=== PATIENT | female | born 1970 | race American Indian/Alaskan Native ===

== ENCOUNTER 2017-07-07 11:52 | Outpatient (CLI) | payer BC ==
--- NOTE | 2017-07-08 13:11 | Mammography Report ---
BILATERAL DIGITAL SCREENING MAMMOGRAM with CAD: 07/07/17 11:52:00 CLINICAL: Routine screening. COMPARISON: 11/19/14 FINDINGS: There has been some fatty involution and the breasts are mostly fatty. Left asymmetries require additional imaging. The right breast is negative. IMPRESSION: Left asymmetries requiring additional imaging. BI-RADS CATEGORY: 0--Needs Additional Imaging RECOMMENDATION: Recall for left spot compression views and left breast ultrasound needed. COMMENT: Patient follow-up letters are generated by our [employer] application.
== END 2017-07-07 11:53 | disposition home or self-care (01) ==
LOC: SPVWC 11:52
PROVIDERS: ATTEND Obstetrics & Gynecology
DX: Z12.31 Encounter for screening mammogram for malignant neoplasm of breast (principal)
CPT/HCPCS: 77067; G0202

== ENCOUNTER 2017-07-26 10:45 | Outpatient (CLI) | payer BC ==
--- NOTE | 2017-07-26 13:28 | Mammography Report ---
LEFT DIGITAL DIAGNOSTIC MAMMOGRAM and LEFT BREAST ULTRASOUND: 07/26/17 10:45:00 CLINICAL: Recalled for asymmetry. The recent screening mammogram was compared to a recent [facility] mammogram that was on a CD brought by the patient. COMPARISON:07/07/17 screening FINDINGS: Lateralmedial and spot compression MLO and CC views were performed. An oval 8mm retroareolar density persists on the CC spot view but there is no correlation on the MLO spot view.There is questionable correlation slightly above the nipple line on the lateral view. No suspicious finding on the lateral view. Ultrasound of the left breast was performed and failed to demonstrate a mass or cyst to correlate with the mammographic asymmetry. A superficial cyst at 9 o'clock one centimeters from the nipple measures 6 x 2 x 5 mm. A benign cyst at 4 o'clock 4 cm from the nipple measures 4 x 2 x 4 mm. A benign cystic cluster at 9 o'clock 5 cm from the nipple measures 5 x 3 x 3 mm. A periareolar dilated duct with echogenic material is identified at 11 o'clock. IMPRESSION: A probably benign mammographic asymmetry with no ultrasound correlate and several benign left breast cysts along with benign duct ectasia. BI-RADS CATEGORY: 3--Probably Benign RECOMMENDATION: Six month followup left mammogram and ultrasound if needed. ACR BI-RADS MAMMOGRAPHIC CODES: 0 = Needs additional imaging evaluation; 1 = Negative; 2 = Benign; 3 = Probably benign; 4 = Suspicious; 5 = Malignant; 6 = Known biopsy-proven malignancy COMMENT: 1. Dense breast tissue, i.e., adenosis, fibrocystic changes, etc., may obscure an underlying neoplasm. 2. Approximately 10% of cancers are not detected with mammography. 3. A negative mammography report should not delay biopsy if a clinically suspicious mass is present. COMMENT: Patient follow-up letters are generated via our [employer] application.
== END 2017-07-26 10:46 | disposition home or self-care (01) ==
LOC: SPVWC 10:45
PROVIDERS: ATTEND Internal Medicine
DX: N60.02 Solitary cyst of left breast (principal); N60.42 Mammary duct ectasia of left breast; N64.89 Other specified disorders of breast
CPT/HCPCS: 76642; G0206

== ENCOUNTER 2018-01-13 09:00 | Outpatient (CLI) | payer BC ==
--- NOTE | 2018-01-13 10:16 | Mammography Report ---
LEFT DIGITAL DIAGNOSTIC MAMMOGRAM with CAD: 01/13/18 09:00:00 CLINICAL: Six month followup asymmetry. COMPARISON:07/26/17 FINDINGS: Routine views plus rolled CC and spot compression MLO and CC views were performed. The previously described asymmetry on the CC view is less prominent on today's CC view with spot compression and is not identified on rolled or MLO views. IMPRESSION: Benign summation density. BI-RADS CATEGORY: 2 -- Benign RECOMMENDATION: Return to routine mammographic screening. ACR BI-RADS MAMMOGRAPHIC CODES: 0 = Needs additional imaging evaluation; 1 = Negative; 2 = Benign; 3 = Probably benign; 4 = Suspicious; 5 = Malignant; 6 = Known biopsy-proven malignancy COMMENT: 1. Dense breast tissue, i.e., adenosis, fibrocystic changes, etc., may obscure an underlying neoplasm. 2. Approximately 10% of cancers are not detected with mammography. 3. A negative mammography report should not delay biopsy if a clinically suspicious mass is present. COMMENT: Patient follow-up letters are generated by our [employer] application.
== END 2018-01-13 09:01 | disposition home or self-care (01) ==
LOC: SPVWC 09:00
PROVIDERS: ATTEND Internal Medicine
DX: R92.8 Other abnormal and inconclusive findings on diagnostic imaging of breast (principal)